=== PATIENT | male | born 2000 | race Two or more races ===

== ENCOUNTER 2024-12-17 05:22 | Emergency (ER) | payer BC, MEDICAID, SELFPAY ==
[2024-12-17 05:24] VITALS: PULSE 74; RESP 18; O2SAT 99
[2024-12-17 05:29] VITALS: BMI 23.6
--- NOTE | 2024-12-17 05:43 | PC.NURSE ---
order placed to engineering to have wall mounted monitor and associated cords removed. Sitter at doorway monitoring pt for safety.
--- NOTE | 2024-12-17 05:47 | PC.NURSE ---
Engineering at the bedside removing monitor/cords.
--- NOTE | 2024-12-17 06:02 | PC.NURSE ---
deputy sheriff building guard Michelle outside pt's room - pt lingering in doorway stating that he wants to go home.
--- NOTE | 2024-12-17 06:28 | PC.NURSE ---
Pt taken to the restroom accompanied by sitter and charger operatorTOM Webster pt provided with cup but refused to give a sample at this time. Pt walked back to his room.
--- NOTE | 2024-12-17 06:31 | EDNOTE_ITS ---
ED Psych RME/HPI General Chief Complaint: Psychiatric Symptoms Stated Complaint: MENTAL EVALUATION Time Seen by Provider: 12/17/24 06:08 Arrival date/time: 12/17/24 05:22 RME / HPI RME / HPI Narrative: DR. CAMPBELL MAIN ED EVALUATION: This section includes all my notes and documentations, including HPI, PE, and ED course.? Alen Campbell MD HPI: 24 year old male presents to the Emergency Department [facility] with possible psychosis. Family called EMS because he hasn't been acting normally. Can't obtain any history from the patient probably due to psychosis. Family is not present. Hasn't been compliant with his medications, but details not known. ROS: Can't obtain from the patient due to current clinical condition. Physical Exam: General:? Alert. Flat affect noted. Delusions and paranoia noted. He stares at you without answering questions. When asked why he is here, he answers with difficult to understand sentences but with [employer] included. Eyes:? Conjunctivae and lids clear. PERRL. EOMI. ENT:? No nasal congestion.? ? Neck:? Supple. Heart:? RRR. Lungs:? No respiratory distress.? Good air movement.? No rhonchi, wheezing, rales.? Abdomen:? Soft and nontender.? Legs:? No clubbing, cyanosis, edema. Skin:? Warm and dry.? Neuro:? Alert and oriented X 1 (person). Cranial nerves II to XII grossly normal. No peripheral motor deficits. I reviewed all diagnostic test results. Blood tests unremarkable. UDS negative. At this point, diagnoses include acute psychosis. Patient was given Haldol 10 mg IM and Benadryl 50 mg IM when he needed help with severe aggression and hostility and agitation. He improved significantly and remained stable. Our ED child care giver arranged transfer to [facility]. Alen Campbell MD Related Data Home Medications ?Medication ?Instructions ?Recorded ?Confirmed hydroxyzine HCl 50 mg tablet 50 mg PO QID PRN Anxiety 03/18/20 03/18/20 Previous Rx's ?Medication ?Instructions ?Recorded hydroxyzine HCl 50 mg tablet 50 mg PO BID PRN agitatio n #20 03/18/20 tabs lorazepam 1 mg tablet (Ativan) 1 mg PO QHSPRN PRN agit ation/sleep 03/18/20 #20 tabs clotrimazole 1 % topical cream 1 applic topical BID #1 5 grams 04/13/24 Allergies Allergy/AdvReac Type Severity Reaction Status Date / Time No Known Allergies Allergy Verified 12/17/24 05:30 Course Quality Measures none Orders Category Date Time Status Diet Regular Diet 12/17/24 Breakfast Active Acetaminophen Stat Lab 12/17/24 06:43 Completed Alcohol, Blood Medical Stat Lab 12/17/24 06:43 Completed CBC Stat Lab 12/17/24 06:43 Completed CMP [Comprehensive Metabolic Panel] Stat Lab 12/17/24 06:43 Completed Drug Screen,Urine Stat Lab 12/17/24 10:27 Completed Magnesium Stat Lab 12/17/24 06:43 Completed Salicylate Stat Lab 12/17/24 06:43 Completed TSH [Thyroid Stimulating Hormone] Stat Lab 12/17/24 06:43 Completed DiphenhydrAMINE INJ [Benadryl Inj] Med 12/17/24 09:03 Discontinued 50 mg IM X1 ONE Haloperidol Lactate [Haldol Inj] Med 12/17/24 09:03 Discontinued 10 mg IM X1 ONE Vital Signs Vital signs: Vital Signs Temperature 98.4 F 12/17/24 06:55 Pulse Rate 82 12/17/24 06:55 Respiratory Rate 18 12/17/24 06:55 Blood Pressure 132/76 H 12/17/24 06:55 Pulse Oximetry (%) 100 12/17/24 06:55 Oxygen Delivery Method Room Air 12/17/24 06:55 Psych MDM Narrative MDM Narrative:: IFreda am scribing for and in the presence of Dr. Campbell. Patient data External records reviewed:: EMS form Clinical information provided by:: patient and EMS Social determinants that could affect healthcare access:: mental health Patient has the following chronic illnesses:: No PMHx, surgeries, daily medications, or known allergies. How is presenting disease/condition affected by chronic disease/condition?: no chronic disease Evaluation data The following diagnostics were reviewed and interpreted by me:: lab results Lab and/or radiology exams considered but not ordered:: none Interpretation Summary: Normal diagnostics Medications / Prescriptions Medications or Prescriptions considered but not ordered:: none Medication administrations:: Medication Administration History Discontinued Medications Diphenhydramine HCl (Diphenhydramine Inj 50 Mg/Ml Vial) 50 mg IM X1 ONE Stop: 12/17/24 09:04 Last Admin: 12/17/24 12:19 Dose: Not Given Documented By: DB Non-Admin Reason: Change of Condition Haloperidol Lactate (Haloperidol Lact Inj 5 Mg/Ml Vial) 10 mg IM X1 ONE Stop: 12/17/24 09:04 Last Admin: 12/17/24 12:19 Dose: Not Given Documented By: DB Non-Admin Reason: Change of Condition Diphenhydramine HCl 50 mg IM, Haloperidol Lactate 10 mg IM Consultations Consultation(s) initiated? (list below): No Diagnosis Psych Differential Diagnosis: acute psychosis, chronic schizophrenia, suicidal ideation, bipolar disorder, depression, drug-induced psychotic disorder and acute anxiety Most likely diagnosis given after review of the tests above:: Acute psychosis Admission Indicated Admission indicated?: not indicated Explain why admission is indicated or not indicated:: We have no psychiatric service here. Admission Request Was there a request for admission?: No Disposition Plan Disposition Plan: Transfer Discharge Plan Plan Patient Disposition: [facility] Prescriptions/Referrals Prescriptions/Med Rec: No Action hydroxyzine HCl 50 mg Tablet 50 mg PO QID PRN (Reason: Anxiety) hydroxyzine HCl 50 mg tablet 50 mg PO BID PRN (Reason: agitation ) Qty: 20 0RF lorazepam [Ativan] 1 mg tablet 1 mg PO QHSPRN PRN (Reason: agitation/sleep ) Qty: 20 0RF clotrimazole 1 % cream 1 applic topical BID Qty: 15 0RF Referrals: No Primary/Family,Physician [Primary Care Provider] - In 1 week Problem List Clinical Impression: Acute psychosis Patient/Caregiver Discharge Instructions Print Language: Macanese Stand Alone Forms: [employer] Award Info., Patient Portal Info Letter
--- NOTE | 2024-12-17 06:39 | PC.NURSE ---
Phlebotomy at bedside for blood draw - security supervisor standing by.
[2024-12-17 06:55] VITALS: BP 132/76; PULSE 82; RESP 18; TEMP 36.9; O2SAT 100
[2024-12-17 07:05] LABS: Basophils # (Auto) 0.1 Thou/mm3 (0.0-0.2); Basophils % (Auto) 1 % (0-2.5); Eosinophils % (Auto) 0 % (0-10); Hematocrit 43.5 % (41.0-53.0); Hemoglobin 15.7 g/dL (13.5-16.0); Immature Granulocytes % (Auto) 0 % (0-0); Immature Granulocytes Auto 0.02 Thou/mm3 (0.00-0.00); Lymphocytes # (Auto) 1.8 Thou/mm3 (1.0-4.8); Lymphocytes % (Auto) 20 % (10-50); Mean Corpuscular HGB Conc 36.1 g/dl (31.0-37.0); Mean Corpuscular Hemoglobin 30.8 pg (25.0-35.0); Mean Corpuscular Volume 86 fL (80-100); Monocytes # (Auto) 0.5 Thou/mm3 (0.0-0.8); Monocytes % (Auto) 6 % (0-12); Neutrophils # (Auto) 6.2 Thou/mm3 (1.8-7.7); Neutrophils % (Auto) 72 % (37-80); Nucleated Red Blood Cell % 0 /100 WBC (0); Platelet Count 480 Thou/mm3 (140-440); RDW Standard Deviation 38.4 fL (35.1-43.9); Red Blood Count 5.09 Miln/mm3 (4.50-5.90); White Blood Count 8.6 Thou/mm3 (3.8-10.6)
[2024-12-17 07:47] LABS: Acetaminophen < 2.0 mcg/mL (10.0-20.0); Alanine Aminotransferase 24 U/L (10-49); Albumin, Serum 5.5 gm/dL (3.5-5.0); Albumin/Globulin Ratio 2.2 (1.2-2.2); Alcohol, Blood Medical < 3.0 mg/dL (0-10.0); Alkaline Phosphatase 79 U/L (46-116); Anion Gap 13 (7-16); Aspartate Amino Transferase 21 U/L (0-34); BUN/Creatinine Ratio 14 Ratio (12-20); Bilirubin,Total 1.1 mg/dL (0.3-1.2); Blood Urea Nitrogen 13 mg/dL (9-23); Calcium 10.4 mg/dL (8.3-10.6); Calcium (Corrected) 10.4 mg/dL (8.5-10.1); Carbon Dioxide 22.2 mMol/L (20.0-31.0); Chloride 106 mMol/L (98-107); Creatinine (Component) 0.9 mg/dL (0.6-1.3); Estimated Creatinine Clearance 129.6 mL/min (>60); Globulin 2.5 gm/dL (2.3-3.5); Glucose 111 mg/dL (74-106); Osmolality,Calculated 282 (275-295); Potassium 3.5 mMol/L (3.4-5.1); Salicylate < 3.0 mg/dL; Sodium 141 mMol/L (136-145); Thyroid Stimulating Hormone 1.38 uIU/mL (0.55-4.78); eGFR > 60 See Note
--- NOTE | 2024-12-17 09:47 | PC.CC ---
Addendum entered by Belinda Woods 12/17/24 11:20: Patient was accepted to [facility] by Dr. Jamil, Unit #1. ASW arranginh transporation. Dr. Taylor, Charge Quyen, and TOM Wade provided with discharge plane to [facility]. Addendum entered by Belinda Woods 12/17/24 10:49: Upon clinical consultation with HEALTH PROGRAM MANAGER, Melissa Holbrook patient will be placed on a 5150-hold for Danger to Self and Gravely Disabled. ASW attempted to provide advisement to patient but patient unable to engage. ASW provided update to Dr. Taylor, eight arm operator Lanise, and TOM Wade regarding discharge plan to [facility]. ASWBelinda submitted referral to [facility] via [facility]. Original Note: Patient is a 24 year-old male BIBA from home for mental health evaluation. ASWBelinda made [id number] contact with patient. ASW introduced self, role, and reason for visit.?Patient appeared alert but only oriented to self. Patient would not engage with ASW and make eye contact. His behavior appeared disinhibited with flat affect. Patient?s thought process was disorganized. Patient presented with signs of delusion as he would look at the wall and whisper. ASW requested from patient permission to make contact with his parents to gain collateral information in which patient denied permission. Per TOM Garcia, triage note, patient was BIBA from home for mental health evaluation as family was concerns due to patient suicidal statements and auditory hallucinations. Per family, patient is not compliant with medication for 8-9 months and having a history of Schizophrenia. Per EMS, [facility] was on scene but did not place patient on a 5150-hold.
[2024-12-17 10:58] LABS: Amphetamine/Methamp Scrn,U Negative (Negative); Barbiturate Screen,Urine Negative (Negative); Benzodiazepines Screen,Urine Negative (Negative); Benzoylecgonine Screen, Ur Negative (Negative); Fentanyl Screen,Urine Negative (Negative); Opiate Screen,Urine Negative (Negative); THC Screen,Urine Negative (Negative)
== END 2024-12-17 15:30 ==
PROVIDERS: Emergency Provider Emergency Medicine
DX: F23 Brief psychotic disorder (principal)
CPT/HCPCS: 36415; 80053; 80307; 80320; 80329; 83735; 84443; 85025; 90839; 96127; 99285; G0480